=== PATIENT | female | born 1960 | race Caucasian/White ===

== ENCOUNTER 2017-12-15 11:38 | Emergency (ER) | payer OTHER ==
[2017-12-15 11:45] VITALS: BP 134/82
--- NOTE | 2017-12-15 12:15 | UC ---
Eye Complaint HPI - HPI Summary HPI Summary: small white spot on left lower eye lid---no erythema, slight swelling - History of Current Complaint Chief Complaint: UCEye Stated Complaint: EYE COMPLAINT Time Seen by Provider: 12/15/17 12:00 Hx Obtained From: Patient ?: No Onset/Duration: Gradual Onset, Lasting Weeks - 2, Still Present Timing: Constant Pain Intensity: 1 Pain Scale Used: 0-10 Numeric Location of Injury: Eye Lid (lower) Aggravating Factor(s): Nothing Alleviating Factor(s): Nothing Associated Signs And Symptoms: Positive: Negative - Allergies/Home Medications Allergies/Adverse Reactions: Allergies Allergy/AdvReac Type Severity Reaction Status Date / Time Adhesive Tape Allergy REDNESS Verified 12/15/17 11:46 codeine Allergy Nausea Verified 12/15/17 11:46 ENVIRONMENT/SEASONAL HAYFEVER Allergy POST NASAL Uncoded 12/15/17 11:46 DRIP Home Medications: Home Medications ALPRAZolam TAB* [Xanax TAB*] 0.25 mg PO Q6H PRN 12/15/17 [History Confirmed 09/29] Tryptophan [l-Tryptophan] 500 mg PO 12/15/17 [History] PMH/Surg Hx/FS Hx/Imm Hx Previously Healthy: No Cancer History: Breast Cancer - Surgical History Surgical History: Yes Surgery Procedure, Year, and Place: 2010 BILATERAL MASTECTOMY/AXILLARY LYMPH NODE DISSECTION, [facility] [place]. 2010 AXILLARY LYMPH NODE DISSECTION, [facility] [place]. 2004 BILATERAL FOOT SURGERY, [facility] - Family History Known Family History: Positive: None - Social History Occupation: Employed Full-time Lives: With Family Alcohol Use: Daily Substance Use Type: None Smoking Status (MU): Never Smoked Tobacco Review of Systems Constitutional: Negative Skin: Negative Eyes: Negative, Other - small "cyst" on mid left lower eye lid ENT: Negative Respiratory: Negative Cardiovascular: Negative Gastrointestinal: Negative Genitourinary: Negative Motor: Negative Neurovascular: Negative Musculoskeletal: Negative Neurological: Negative Psychological: Negative Is Patient Immunocompromised?: No All Other Systems Reviewed And Are Negative: Yes Physical Exam Triage Information Reviewed: Yes Appearance: Well-Appearing, No Pain Distress, Well-Nourished Vital Signs: Initial Vital Signs Temp 98.4 F 12/15/17 11:42 Pulse 74 12/15/17 11:42 Resp 18 12/15/17 11:42 BP 134/82 12/15/17 11:42 Pulse Ox 99 12/15/17 11:42 Vital Signs Reviewed: Yes Eye Exam: Normal Eyes: Positive: Conjunctiva Clear, Other: - small pustula mid left lower lid ENT Exam: Normal ENT: Positive: Normal ENT inspection, Hearing grossly normal, Pharynx normal. Negative: Nasal congestion, Muffled voice, Hoarse voice, Dental tenderness Dental Exam: Normal Neck exam: Normal Neck: Positive: Supple, Nontender, No Lymphadenopathy Respiratory Exam: Normal Respiratory: Positive: Chest non-tender, No respiratory distress, No accessory muscle use Cardiovascular Exam: Normal Cardiovascular: Positive: RRR, Pulses Normal, Brisk Capillary Refill Musculoskeletal Exam: Normal Musculoskeletal: Positive: Strength Intact, ROM Intact, No Edema Neurological Exam: Normal Neurological: Positive: Alert, Muscle Tone Normal Psychological Exam: Normal Skin Exam: Normal Eye Complaint Course/Dx - Course Course Of Treatment: warm soaks, erythromycin ointment, follow with optho. prn - Differential Dx/Diagnosis Provider Diagnoses: OS Stye Discharge - Sign-Out/Discharge Documenting (check all that apply): Discharge/Admit/Transfer - Discharge Plan Condition: Stable Disposition: HOME Prescriptions: Erythromycin OPTH OINT* [Erythromycin 0.5% OPTH OINT*] 1 applic LEFT EYE TID #1 tube Patient Education Materials: Stye (ED), Warm Compress or Soak (ED) Referrals: Adela Young MD [Primary Care Provider] - If Needed Ashish Rapp MD [Medical Doctor] - If Needed - Billing Disposition and Condition Condition: STABLE Disposition: HOME
== END 2017-12-15 12:37 | disposition home or self-care (01) ==
LOC: UCEAST 11:38
DX: H00.025 Hordeolum internum left lower eyelid (principal)
CPT/HCPCS: 99212; G0463